=== PATIENT | male | born 1955 | race Asian ===

== ENCOUNTER 2017-04-22 06:59 | Emergency (ER) | payer OTHER ==
[~2017-04-22] VITALS: Ht 167.6 cm; Wt 62.7 kg
[2017-04-22] MEDS ORDERED: SIMV-261 PO (07:11)
[2017-04-22] MEDS ORDERED: INSLAN SQ (07:11)
[2017-04-22] MEDS ORDERED: INSU100V3 SQ (07:11)
[2017-04-22] MEDS ORDERED: LOSA50TA37 PO (07:11)
[2017-04-22] MEDS ORDERED: METF500T4 PO (07:11)
[2017-04-22 07:12] LABS: GLUCOSE,POINT OF CARE 141 MG/DL (70-110)
[2017-04-22 07:14] VITALS: BP 140/89
== END 2017-04-22 07:51 | disposition home or self-care (01) ==
LOC: EMS 07:01
DX: J40 Bronchitis, not specified as acute or chronic (principal); E11.9 Type 2 diabetes mellitus without complications; E78.00 Pure hypercholesterolemia, unspecified; I10 Essential (primary) hypertension; F17.210 Nicotine dependence, cigarettes, uncomplicated; Z79.4 Long term (current) use of insulin
CPT/HCPCS: 82962; 99283; 99406

== ENCOUNTER 2017-07-23 11:59 | Emergency (ER) | payer OTHER ==
[~2017-07-23] VITALS: Ht 157.5 cm; Wt 60.5 kg
[~2017-07-23 11:59] MED LIST: INSLAN SQ; INSU100V3 SQ; LOSA50TA37 PO; METF500T6 PO; SIMV-261 PO
[2017-07-23 12:28] LABS: GLUCOSE,POINT OF CARE 285 MG/DL (70-110)
[2017-07-23] MEDS ORDERED: KETOROLAC TROMETHAMINE 60 MG/2 ML VIAL IM ONE (15:00)
[2017-07-23] MEDS ORDERED: CYCLOBENZAPRINE HCL 10 MG TABLET PO ONE (15:00)
[2017-07-23] MEDS ORDERED: KETOROLAC TROMETHAMINE 30 MG/ML VIAL IVP ONE (15:10)
[2017-07-23 15:11] LABS: BASOPHILS % (AUTO) 0.6 % (0.0-2.0); EOSINOPHILS % (AUTO) 0.6 % (1.0-6.0); HEMATOCRIT 42.3 % (41-53); LYMPHOCYTES # (AUTO) 1.7 K/uL (1.0-4.8); LYMPHOCYTES % (AUTO) 14.2 % (22.0-44.0); MEAN CORPUSCULAR HEMOGLOBIN 30.1 pg (26.0-34.0); MEAN CORPUSCULAR HGB CONC 35.4 G/dL (31.0-37.0); MEAN CORPUSCULAR VOLUME 85 fL (80-100); MONOCYTES # (AUTO) 1.1 K/uL (0.1-1.0); MONOCYTES % (AUTO) 9.3 % (2.0-9.0); NEUTROPHILS # (AUTO) 8.9 K/uL (1.8-7.7); NEUTROPHILS % (AUTO) 75.3 % (40.0-70.0); PLATELET COUNT (AUTO) 190 K/uL (150-450); RED BLOOD CELL COUNT(AUTO) 4.97 MIL/uL (4.50-5.90); RED CELL DISTRIBUTION WIDTH 13.4 % (11.5-14.5)
[2017-07-23 15:18] LABS: ANION GAP 7 mmol/L (8-16); CALCIUM, TOTAL 8.8 mg/dL (8.8-10.5); CARBON DIOXIDE 28 mmol/L (22-29); CHLORIDE 99 mmol/L (98-107); CREATININE 0.94 mg/dL (0.60-1.30); GLOMERULAR FILTR. RATE CALC > 60 mL/min (>60); GLUCOSE,RANDOM 204 mg/dL (70-110); POTASSIUM 4.2 mmol/L (3.5-5.1); SODIUM SERUM 134 mmol/L (136-145); UREA NITROGEN, BLOOD 9 mg/dL (7-18)
[2017-07-23 15:52] LABS: PLATELET MORPHOLOGY COMMENT NORMAL
[2017-07-23 15:52] LABS: APPEARANCE,URINE CLEAR (CLEAR); BILIRUBIN,URINE NEGATIVE (NEGATIVE); GLUCOSE, URINE (UA) >=1000 mg/dL (NEGATIVE); KETONES,URINE NEGATIVE (NEGATIVE); LEUKOCYTE ESTERASE ,URINE NEGATIVE (NEGATIVE); NITRATE,URINE NEGATIVE (NEGATIVE); OCCULT BLOOD,URINE NEGATIVE (NEGATIVE); PROTEIN,URINE POS 1+ (NEGATIVE); UROBILINOGEN,URINE 0.2 mg/dL (<=1.0)
[2017-07-23 16:09] LABS: BACTERIA,URINE Rare /HPF (None Seen); RBC,URINE 0-2 /HPF (0-2); SQUAMOUS EPITHELIAL CELL,UR Rare /LPF (None Seen); WBC,URINE 0-2 /HPF (0-5)
[2017-07-23 18:25] VITALS: BP 140/74
== END 2017-07-23 18:29 | disposition home or self-care (01) ==
LOC: EMS 12:00
DX: M51.36 Other intervertebral disc degeneration, lumbar region (principal); G54.4 Lumbosacral root disorders, not elsewhere classified; M54.42 Lumbago with sciatica, left side; E11.9 Type 2 diabetes mellitus without complications; E78.00 Pure hypercholesterolemia, unspecified; I10 Essential (primary) hypertension; F17.210 Nicotine dependence, cigarettes, uncomplicated
CPT/HCPCS: 36415; 72132; 80048; 81001; 82962; 85025; 96374; 99285; 99406; J1885

== ENCOUNTER 2020-03-08 18:08 | Emergency (ER) | payer OTHER ==
[~2020-03-08] VITALS: Ht 154.9 cm; Wt 62.3 kg
[~2020-03-08 18:08] MED LIST changes: +METF-960 PO; -METF500T6 PO
[2020-03-08 18:22] VITALS: BP 171/82
[2020-03-08] MEDS ORDERED: INSLAN SQ (18:27)
[2020-03-08] MEDS ORDERED: DULA0.75 SQ (18:27)
[2020-03-08] MEDS ORDERED: EMPA10TA PO (18:27)
[2020-03-08] MEDS ORDERED: SIMV-260 PO (18:27)
[2020-03-08] MEDS ORDERED: AMLO-257 PO (18:27)
[2020-03-08] MEDS ORDERED: LINA5TAB PO (18:27)
[2020-03-08] MEDS ORDERED: DOXYCYCLINE HYCLATE 100 MG TABLET PO ONE (19:00)
[2020-03-08] MEDS ORDERED: CEPHALEXIN MONOHYDRATE 500 MG CAPSULE PO ONE (19:00)
== END 2020-03-08 19:46 | disposition home or self-care (01) ==
LOC: EMS 18:08
DX: H00.031 Abscess of right upper eyelid (principal); E11.9 Type 2 diabetes mellitus without complications; E78.00 Pure hypercholesterolemia, unspecified; I10 Essential (primary) hypertension; Z87.891 Personal history of nicotine dependence; Z79.4 Long term (current) use of insulin

== ENCOUNTER 2021-06-02 11:44 | Emergency (ER) | payer MEDICARE, OTHER ==
[~2021-06-02] VITALS: Ht 154.9 cm; Wt 55.5 kg
[~2021-06-02 11:44] MED LIST changes: +AMLO-257 PO; +DULA0.75 SQ; +EMPA10TA PO; +LINA5TAB PO; +LOSA-382 PO; -LOSA50TA37 PO; +METF-1211 PO; -METF-960 PO; +SIMV-260 PO; -SIMV-261 PO
[2021-06-02 12:34] VITALS: BP 121/63
[2021-06-02] MEDS ORDERED: HYDR-4527 PO (13:14)
== END 2021-06-02 13:25 | disposition home or self-care (01) ==
LOC: EMS 11:49
DX: R21 Rash and other nonspecific skin eruption (principal); E11.9 Type 2 diabetes mellitus without complications; E78.00 Pure hypercholesterolemia, unspecified; I10 Essential (primary) hypertension; Z87.891 Personal history of nicotine dependence; Z79.4 Long term (current) use of insulin
CPT/HCPCS: 99283